=== PATIENT | female | born 1965 | race Caucasian/White ===

== ENCOUNTER → 2022-04-14 08:48 | Outpatient (BNVA) | payer OTHER, SELFPAY | PROVIDERS: PCP Internal Medicine Endocrinology, Diabetes & Metabolism; Visit Provider Physician Assistant Medical | DX: S76.012A Strain of muscle, fascia and tendon of left hip, initial encounter (principal); X50.0XXA Overexertion from strenuous movement or load, initial encounter; X50.1XXA Overexertion from prolonged static or awkward postures, initial encounter; M23.92 Unspecified internal derangement of left knee | CPT/HCPCS: 73502; 73564; 99203 ==

== ENCOUNTER → 2022-04-28 13:02 | Outpatient (BNVA) | payer OTHER, SELFPAY | PROVIDERS: PCP Internal Medicine Endocrinology, Diabetes & Metabolism; Visit Provider Physician Assistant Medical | DX: S76.012A Strain of muscle, fascia and tendon of left hip, initial encounter (principal); X50.1XXA Overexertion from prolonged static or awkward postures, initial encounter; M23.92 Unspecified internal derangement of left knee | CPT/HCPCS: 99213 ==

== ENCOUNTER → 2022-05-11 13:47 | Outpatient (BNVA) | payer OTHER, SELFPAY | PROVIDERS: PCP Internal Medicine Endocrinology, Diabetes & Metabolism; Visit Provider Physician Assistant Medical | DX: M23.92 Unspecified internal derangement of left knee (principal); M25.552 Pain in left hip | CPT/HCPCS: 99213 ==

== ENCOUNTER 2022-05-18 09:39 | Outpatient (REF) | payer OTHER, SELFPAY ==
--- NOTE | ~2022-05-18 | MR_ITS ---
EXAMINATION: MR KNEE WITHOUT CONTRAST, LEFT CLINICAL INFORMATION: Left knee pain and swelling. Evaluate internal derangement. Prior meniscal surgery. COMPARISON: Left knee radiographs dated 04/14/2022. TECHNIQUE: MRI of the knee without contrast was performed using routine sequences on a high-field scanner. FINDINGS: MENISCI: Medial Meniscus: Inner margin blunting/attenuation of the posterior horn and root, likely indicating prior meniscectomy. Correlation with surgical history is recommended. Lateral Meniscus: Intact LIGAMENTS: Cruciate: Increased T2 signal associated with the anterior cruciate ligament likely representing mucoid degeneration. Intact posterior cruciate ligament. Collateral: Intact. EXTENSOR MECHANISM: Intact quadriceps and patellar tendons. Normal patellofemoral alignment. ARTICULAR CARTILAGE/BONE: Patellofemoral Compartment: Medial patellar facet articular cartilage fissuring with minimal subchondral cystic change. Central and medial trochlea signal heterogeneity and surface irregularity. Small central osteophytes. Marginal osteophytes. Medial Compartment: Osteochondral defect at the weightbearing medial femoral condyle measuring 1.9 x 1.8 cm (AP by ML). Multiple small, nondisplaced osteochondral fragments within the central aspect of the lesion with fluid signal along the undersurface. Overlying articular cartilage signal heterogeneity with areas of full-thickness fissuring. Underlying marrow edema and subchondral cystic change. Medial tibial articular cartilage thinning with areas of full is loss and underlying subchondral cystic change. Marginal osteophytes. Lateral Compartment: Articular cartilage signal heterogeneity and surface irregularity with marginal osteophytes. JOINT FLUID AND BURSAE: [id number] joint effusion with synovitis. MR/MR knee LT wo con IMPRESSION: 1. Inner margin blunting/attenuation of the medial meniscus posterior horn and root, likely indicating prior meniscectomy. Correlation with surgical history is recommended. 2. 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 3. Osteochondral lesion at the weightbearing medial femoral condyle measuring 1.9 x 1.8 cm with multiple small, nondisplaced and unstable osteochondral fragments. 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 [id number] joint effusion with synovitis.
== END 2022-05-18 09:40 | disposition home or self-care (01) ==
LOC: HO.MRI 09:39
PROVIDERS: PCP Internal Medicine Endocrinology, Diabetes & Metabolism; Visit Provider Physician Assistant Medical
DX: M23.92 Unspecified internal derangement of left knee (principal)
CPT/HCPCS: 73721

== ENCOUNTER → 2022-05-25 14:16 | Outpatient (BNVA) | payer OTHER, SELFPAY | PROVIDERS: PCP Internal Medicine Endocrinology, Diabetes & Metabolism; Visit Provider Physician Assistant Medical | DX: M23.92 Unspecified internal derangement of left knee (principal); M25.462 Effusion, left knee; M93.962 Osteochondropathy, unspecified, left lower leg | CPT/HCPCS: 99213 ==

== ENCOUNTER 2022-07-07 15:00 | Outpatient (RCR) | payer OTHER, SELFPAY ==
--- NOTE | 2022-04-27 11:06 | MHC.PT.EP ---
[facility] [place] Office [place] Office [place] Office [address] [place] [address] [phone] F: [phone] F: [phone] F: [phone] F: [phone] Physical Therapy Plan of Care Date of Evaluation: Date of Surgery: N/A Diagnosis: L knee pain; L hip strain Assessment: pt is a 56 y/o female presenting to physical therapy w/ referring diagnosis of L knee pain; L hip strain. pt signs and symptoms consistent w/ MCL sprain vs. meniscal injury. pt did have xray (-) for fx; however, no MRI to evaluate soft tissue integrity. L hip pain seems to be sequelae of poor knee mechanics w/ ambulation, transfers, stair navigation, etc. Impairments include pain, decreased range of motion, decreased strength, impaired functional mobility, impaired postural awareness, and altered ambulation mechanics. pt is a good candidate for skilled PT due to age, potential remediation of impairments, typical disease/condition progression and prognosis, comorbidities, and motivation. pt would benefit from skilled PT intervention to provide a tailored strengthening and stretching exercise program, functional training, gait training, postural re-training, neuromuscular re-education, modalities as needed for pain, equipment safety demonstration. Frequency and Duration: The patient will be seen 2x/wk for 6 wks Short Term Goals: pt will be I w/ HEP to promote self-management of condition. pt will improve B ankle dorsiflexion by 10 degrees to normalize gait pattern. pt will improve L knee extension strength by 1 MMT grade to promote ease w/ sit to stand transfers. Half-Way Goals: pt will report a statistically significant improvement in self-reported outcome measure, LEFI, to promote return to PLOF. pt will demo proper lifting mechanics x5 reps of 20# object from floor to chest height to promote return to laundry. pt will improve L hip strength to 5/5 in all planes to promote ease in navigating stairs. Treatment Plan: Modalities to reduce pain, spasms and effusion. Manual therapy to restore motion and function. Therapeutic exercise to improve strength and flexibility. Neuromuscular re-education for posture and balance. Therapeutic activities to return to functional activities of daily living. Electronically signed by: Bridget Thomas PT, DPT Please sign and return to therapist. Thank you for your referral.
--- NOTE | 2022-07-09 15:46 | MHC.PT.DC ---
[facility] [place] Office [place] Office [place] Office [address] [place] [address] [facility] [phone] F: [phone] F: [phone] F: [phone] F: [phone] Physical Therapy Discharge Report Diagnosis: L knee pain; L hip strain Date of Surgery: N/A Date of Evaluation: 04/27/22 Date of Discharge: 07/09/22 Treatments to Date: 14 Cancellations to Date: 6 No Shows to Date: 0 Discharge Status: Improved Function Independent with HEP Discharge Summary: The patient has reported a significant improvement in her pain severity and frequency. She occasionally has moments when her knee will get stuck and she flexes and extends a couple times and then it will resolve. She is independent with her home exercise program. The patient has set up a transition to a gym program with her certified personal chef. She is now discharged from this physical therapy plan of care. Electronically signed by: Bridget Thomas PT, DPT Please sign and return to therapist. Thank you for your referral.
== END 2022-07-09 15:46 | disposition home or self-care (01) ==
LOC: HO.PT 15:00
PROVIDERS: Visit Provider Physician Assistant Medical
DX: M23.92 Unspecified internal derangement of left knee (principal); S76.012D Strain of muscle, fascia and tendon of left hip, subsequent encounter
CPT/HCPCS: 97110; 97112; 97162; 97164; 97530